=== PATIENT | female | born 1975 | race Caucasian/White ===

== ENCOUNTER 2023-07-15 08:15 | Day surgery (SDC) | payer MEDICAID ==
[~2023-07-15] VITALS: Ht 162.6 cm; Wt 77.6 kg
[2023-07-15] MEDS: fentaNYL CITRATE/PF 100 MCG/2 ML AMP ONE ×2 (11:58→12:11)
[2023-07-15] MEDS: MIDAZOLAM HCL 5 MG/5 ML VIAL ONE (11:58)
[2023-07-15 15:55] VITALS: O2SAT 100
[2023-07-15 17:15] VITALS: BP_SYST 116; PULSE 65; RESP 20; TEMP 96.9
== END 2023-07-15 13:25 | disposition home or self-care (01) ==
LOC: SDS 08:15 → SMU 08:17 → SDS 13:25
PROVIDERS: ATTEND Internal Medicine
DX: Z12.11 Encounter for screening for malignant neoplasm of colon (principal); K29.50 Unspecified chronic gastritis without bleeding; K21.00 Gastro-esophageal reflux disease with esophagitis, without bleeding; K64.8 Other hemorrhoids; I10 Essential (primary) hypertension; E11.9 Type 2 diabetes mellitus without complications; E66.9 Obesity, unspecified; Z68.29 Body mass index [BMI] 29.0-29.9, adult; Z79.84 Long term (current) use of oral hypoglycemic drugs; Z79.899 Other long term (current) drug therapy; Z98.84 Bariatric surgery status; Z80.0 Family history of malignant neoplasm of digestive organs
CPT/HCPCS: 45378; 43239; 99152; 87081; 36415; 82948; 88305; 88312; 88313; G0378; J2250; J3010